=== PATIENT | female | born 2000 | race Two or more races ===

== ENCOUNTER 2018-02-24 11:13 | Emergency (ER) | payer SELFPAY ==
[~2018-02-24] VITALS: Ht 157.5 cm; Wt 65.3 kg
[2018-02-24 12:22] VITALS: BP 137/62
== END 2018-02-24 14:06 | disposition home or self-care (01) ==
LOC: ER 11:13
DX: O26.891 Other specified pregnancy related conditions, first trimester (principal); R10.9 Unspecified abdominal pain; Z3A.10 10 weeks gestation of pregnancy
CPT/HCPCS: 36415; 76801; 84702